=== PATIENT | male | born 1960 | race Caucasian/White ===

== ENCOUNTER 2020-11-11 14:14 | Emergency (ER) | payer OTHER ==
[2020-11-11 14:49] LABS: BASO # 0.1 10*3/uL (0.0-0.1); BASO % 0.7 % (0.0-1.0); EOS % 0.2 % (1.0-4.0); HEMATOCRIT 56.5 % (42.0-52.0); LYMPH # 2.8 10*3/uL (1.3-4.4); LYMPH % 20.1 % (27.0-41.0); MEAN CELL VOLUME 94.5 fl (80.0-94.0); MEAN CORPUSCULAR HGB 30.3 pg (27.0-31.0); MEAN PLATELET VOLUME 12.1 fl (9.6-12.3); MONO % 6.8 % (3.0-9.0); NEUT % 71.7 % (47.0-73.0); PLATELET COUNT AUTOMATED 269 10*3/uL (130-400); RED BLOOD COUNT 5.98 10*6/uL (4.50-5.90); RED CELL DISTRI WIDTH 13.7 % (0-14.5); WHITE BLOOD COUNT 13.9 10*3/uL (4.8-10.8)
[2020-11-11 15:02] LABS: ACT PARTIAL THROMBO TIME 25.9 SECONDS (20.0-32.1); INTERNATIONAL NORM RATIO 1.2 (2.0-3.5)
[2020-11-11 15:09] LABS: ALBUMIN 3.7 gm/dl (3.1-4.5); ALKALINE PHOSPHATASE 155 U/L (45-117); BUN 34 mg/dl (7-24); CHLORIDE 101 mmol/L (98-107); CREATININE 2.19 mg/dL (0.70-1.30); SGOT/AST 118 IU/L (3-35); SGPT/ALT 215 U/L (12-78); SODIUM 132 mmol/L (136-145); TOTAL PROTEIN 7.7 gm/dL (6.4-8.2)
[2020-11-11 15:19] LABS: POTASSIUM 6.1 mmol/L (3.5-5.1); TROPONIN I < 0.015 ng/ml (<0.045)
[2020-11-12] MEDS ORDERED: PACERONE400 MG PO (17:33)
[2020-11-12] MEDS ORDERED: ACEBUTOLOL HCL200 MG PO (17:33)
[2020-11-12] MEDS ORDERED: ASPIRIN81 M1 PO (17:34)
[2020-11-12] MEDS ORDERED: BUSPIRONE10 MG PO (17:35)
[2020-11-12] MEDS ORDERED: [UNRECOGNIZED DRUG - REMARK] (17:35)
[2020-11-12] MEDS ORDERED: CARVEDILOL6.25 MG PO (17:37)
[2020-11-12] MEDS ORDERED: PHARMASSURE FO0.4 MG PO (17:38)
[2020-11-12] MEDS ORDERED: FETZIMA120 M1 PO (17:38)
[2020-11-12] MEDS ORDERED: LASIX40 MG PO (17:39)
[2020-11-12] MEDS ORDERED: KLONOPIN0.5 MG PO (17:39)
[2020-11-12] MEDS ORDERED: GLIPIZIDE5 MG PO (17:39)
[2020-11-12] MEDS ORDERED: LIPITOR40 MG PO (17:39)
[2020-11-12] MEDS ORDERED: REMERON30 M1 PO (17:40)
[2020-11-12] MEDS ORDERED: POTASSIUM CHLO20 ME4 PO (17:40)
[2020-11-12] MEDS ORDERED: SACUBITRIL-VALSARTAN (17:42)
[2020-11-12] MEDS ORDERED: VITAMIN B125000 MCG SL (17:42)
[2020-11-12] MEDS ORDERED: VITAMIN C1000 M5 PO (17:43)
[2020-11-12] MEDS ORDERED: VITAMIN D210 MCG PO (17:43)
[2020-11-12 18:32] LABS: CREATININE 3.65 mg/dL (0.70-1.30)
[2020-11-12 18:39] LABS: POTASSIUM 6.2 mmol/L (3.5-5.1)
[2020-11-13 15:55] LABS: BASO % 0.5 % (0.0-1.0); EOS # 0.1 10*3/uL (0.0-0.4); EOS % 0.6 % (1.0-4.0); HEMATOCRIT 46.1 % (42.0-52.0); LYMPH # 1.5 10*3/uL (1.3-4.4); LYMPH % 17.6 % (27.0-41.0); MEAN CELL VOLUME 93.5 fl (80.0-94.0); MEAN CORPUSCULAR HGB 30.2 pg (27.0-31.0); MEAN CORPUSCULAR HGB CONC 32.3 g/dl (33.0-37.0); MEAN PLATELET VOLUME 12.6 fl (9.6-12.3); MONO # 0.3 10*3/uL (0.1-1.0); NEUT # 6.5 10*3/uL (2.3-7.9); NEUT % 76.8 % (47.0-73.0); NUCLEATED RED BLOOD CELL 0.4 % (0.0-0.0); PLATELET COUNT AUTOMATED 127 10*3/uL (130-400); RED BLOOD COUNT 4.93 10*6/uL (4.50-5.90); RED CELL DISTRI WIDTH 13.6 % (0-14.5); WHITE BLOOD COUNT 8.4 10*3/uL (4.8-10.8)
[2020-11-13 16:17] LABS: ALBUMIN 2.2 gm/dl (3.1-4.5); CREATININE 3.27 mg/dL (0.70-1.30)
[2020-11-13 16:25] LABS: POTASSIUM 4.5 mmol/L (3.5-5.1)
[2020-11-14 08:26] LABS: BASO % 0.4 % (0.0-1.0); EOS % 0.4 % (1.0-4.0); LYMPH # 1.3 10*3/uL (1.3-4.4); LYMPH % 18.7 % (27.0-41.0); MEAN CELL VOLUME 91.6 fl (80.0-94.0); MEAN CORPUSCULAR HGB 30.2 pg (27.0-31.0); MONO # 0.4 10*3/uL (0.1-1.0); MONO % 6.3 % (3.0-9.0); NEUT # 4.9 10*3/uL (2.3-7.9); NEUT % 73.5 % (47.0-73.0); PLATELET COUNT AUTOMATED 133 10*3/uL (130-400); RED BLOOD COUNT 5.46 10*6/uL (4.50-5.90); RED CELL DISTRI WIDTH 13.6 % (0-14.5); WHITE BLOOD COUNT 6.7 10*3/uL (4.8-10.8)
[2020-11-14 08:47] LABS: ALBUMIN 2.1 gm/dl (3.1-4.5); CREATININE 2.12 mg/dL (0.70-1.30); POTASSIUM 4.4 mmol/L (3.5-5.1); TOTAL PROTEIN 5.3 gm/dL (6.4-8.2)
== END 2020-11-14 15:55 | disposition short-term general hospital (02) ==
LOC: ED 14:14
PROVIDERS: Family Medicine; Internal Medicine; Student in an Organized Health Care Education/Training Program
DX: N17.9 Acute kidney failure, unspecified (principal); E87.5 Hyperkalemia; Z79.82 Long term (current) use of aspirin; Z79.899 Other long term (current) drug therapy